=== PATIENT | female | born 1955 | race Caucasian/White ===

== ENCOUNTER 2025-01-14 16:32 | Inpatient (IN) | payer MEDICARE ==
[~2025-01-14] VITALS: Ht 160 cm; Wt 46.4 kg
[~2025-01-14 16:32] MED LIST: OMNICEF300 MG PO
[2025-01-14] MEDS ORDERED: TYLENOL325 M2 PO (17:19)
[2025-01-14] MEDS ORDERED: AMLODIPINE BESY10 MG PO (17:20)
[2025-01-14] MEDS ORDERED: LIPITOR80 MG PO (17:21)
[2025-01-14] MEDS ORDERED: ASPIRIN81 M1 PO (17:21)
[2025-01-14] MEDS ORDERED: DICYCLOMINE HYD10 MG PO (17:23)
[2025-01-14] MEDS ORDERED: COLACE100 MG PO (17:26)
[2025-01-14] MEDS ORDERED: JARDIANCE10 MG PO (17:27)
[2025-01-14] MEDS ORDERED: APRESOLINE25 MG PO (17:29)
[2025-01-14] MEDS ORDERED: LEXAPRO10 MG PO (17:29)
[2025-01-14] MEDS ORDERED: MILK OF MA400 MG/53 PO (17:30)
[2025-01-14] MEDS ORDERED: PANTOPRAZOLE SO40 MG PO (17:31)
[2025-01-14] MEDS ORDERED: REMERON15 M2 PO (17:32)
[2025-01-14] MEDS ORDERED: VALSARTAN160 MG PO (17:32)
[2025-01-14] MEDS ORDERED: hydrOXYzine hydrochloride 50 MG/ML VIAL IM PRN (17:35)
[2025-01-14] MEDS ORDERED: LORazepam 1 MG TAB PO PRN (17:35)
[2025-01-14] MEDS ORDERED: Water, Sterile 10 ML VIAL IM PRN (17:40)
[2025-01-14] MEDS ORDERED: Mirtazapine 15 MG TAB PO SCH (21:00)
[2025-01-14] MEDS ORDERED: DIVALPROEX (DR) 250 MG TAB PO SCH (21:00)
[2025-01-14] MEDS ORDERED: ACETAMINOPHEN 325 MG TAB PO PRN (21:10)
[2025-01-14] MEDS ORDERED: MG-AL HYDROXIDE/SIMETICONE 30 ML UDC PO PRN (21:10)
[2025-01-14 21:11] VITALS: BP 113/64
[2025-01-14] MEDS ORDERED: Menthol/Zinc Oxide 4 GM THIN T PRN (21:30)
[2025-01-14] MEDS ORDERED: DEXTROSE 50% 25 GM/50 ML VIAL IV PRN (22:50)
[2025-01-14] MEDS ORDERED: DOCUSATE SODIUM 100 MG CAP PO PRN (22:50)
[2025-01-15 06:05] LABS: BASO # 0.1 10*3/uL (0.0-0.1); BASO % 0.8 % (0.0-1.0); EOS # 1.1 10*3/uL (0.0-0.4); EOS % 14.7 % (1.0-4.0); MEAN CELL VOLUME 90.4 fl (81.0-99.0); MEAN CORPUSCULAR HGB 28.0 pg (27.0-31.0); MEAN PLATELET VOLUME 9.5 fl (9.6-12.3); MONO # 0.8 10*3/uL (0.1-1.0); MONO % 10.4 % (3.0-9.0); NEUT # 3.4 10*3/uL (2.3-7.9); NEUT % 45.8 % (47.0-73.0); NUCLEATED RED BLOOD CELL 0.0 % (0.0-0.0); NUCLEATED RED BLOOD CELL 0.0 10*3/uL (0.0-0.0); PLATELET COUNT AUTOMATED 336 10*3/uL (130-400); RED CELL DISTRI WIDTH 15.9 % (0-14.5)
[2025-01-15 06:40] LABS: BUN 13 mg/dl (9-23); LDL CHOLESTEROL 45 mg/dL (9-159); SGPT/ALT 13 U/L (5-49)
[2025-01-15 07:10] LABS: VITAMIN D, 25-HYDROXY 27.5 ng/mL (30-100)
[2025-01-15] MEDS ORDERED: INSULIN LISPRO 1 UNIT/0.01 ML SQ SCH (07:30)
[2025-01-15] MEDS ORDERED: Vitamin D 1,000 IU TAB (25 MCG) PO SCH (09:00)
[2025-01-15] MEDS ORDERED: hydrALAZINE hydrochloride 25 MG TAB PO SCH (09:00)
[2025-01-15] MEDS ORDERED: CEFDINIR 300 MG CAP PO SCH (09:00)
[2025-01-15] MEDS ORDERED: Dicyclomine Hydrochloride 10 MG CAP PO SCH (09:00)
[2025-01-15] MEDS ORDERED: ASPIRIN ENTERIC COATED 81 MG TAB PO SCH (09:00)
[2025-01-15 09:11] VITALS: BP 125/70
[2025-01-15] MEDS ORDERED: ATORVASTATIN CALCIUM 80 MG TAB PO SCH (10:00)
[2025-01-15 20:00] VITALS: BP 135/99
[2025-01-16 08:07] VITALS: BP 107/61
[2025-01-16] MEDS ORDERED: Rivastigmine Tartrate 4.6 MG/24 HR PATCH T SCH (09:00)
[2025-01-16 18:42] LABS: BILIRUBIN Negative (Negative); BLOOD Negative (Negative); CLARITY Clear (Clear); COLOR Yellow (Yellow); KETONE Negative (Negative); LEUKO ESTERASE Negative (Negative); NITRITE Negative (Negative); PH 6.5 (4.5-8.0); SPECIFIC GRAVITY 1.015 (1.001-1.030); UROBILINOGEN 0.2 E.U./dl (0.0-1.0)
[2025-01-16 18:54] LABS: BACTERIA TRACE; EPITHELIAL CELLS 21-30; MUCOUS TRACE
[2025-01-16 20:00] VITALS: BP 109/94
[2025-01-17 08:36] VITALS: BP 107/75
[2025-01-17 20:00] VITALS: BP 109/58
[2025-01-17 20:50] VITALS: BP 116/68
[2025-01-18 08:00] VITALS: BP 101/71
[2025-01-18] MEDS ORDERED: Rivastigmine Tartrate 9.5 MG/24 HR PATCH T SCH (09:00)
[2025-01-18 20:00] VITALS: BP 112/80
[2025-01-19 07:50] VITALS: BP 120/64
[2025-01-19 19:16] VITALS: BP 116/65
[2025-01-20 08:41] VITALS: BP 118/74
[2025-01-20] MEDS ORDERED: RIVASTIGMINE 13.3 MG/24 HR TDM T SCH (09:00)
[2025-01-20 20:00] VITALS: BP 127/71
[2025-01-20] MEDS ORDERED: Memantine Hydrochloride 5 MG TAB PO SCH (21:00)
[2025-01-21 06:41] LABS: BUN 16 mg/dl (9-23)
[2025-01-21 06:47] LABS: BASO # 0.1 10*3/uL (0.0-0.1); BASO % 0.8 % (0.0-1.0); EOS # 0.8 10*3/uL (0.0-0.4); EOS % 12.4 % (1.0-4.0); MEAN CELL VOLUME 89.6 fl (81.0-99.0); MEAN CORPUSCULAR HGB 28.3 pg (27.0-31.0); MEAN PLATELET VOLUME 9.6 fl (9.6-12.3); MONO # 0.6 10*3/uL (0.1-1.0); MONO % 9.6 % (3.0-9.0); NEUT # 3.0 10*3/uL (2.3-7.9); NEUT % 48.1 % (47.0-73.0); NUCLEATED RED BLOOD CELL 0.0 % (0.0-0.0); NUCLEATED RED BLOOD CELL 0.0 10*3/uL (0.0-0.0); PLATELET COUNT AUTOMATED 326 10*3/uL (130-400); RED CELL DISTRI WIDTH 15.9 % (0-14.5)
[2025-01-21 07:59] VITALS: BP 126/78
[2025-01-21 20:00] VITALS: BP 120/70
[2025-01-22 08:00] VITALS: BP 147/80
[2025-01-22 10:03] LABS: BASO # 0.1 10*3/uL (0.0-0.1); BASO % 0.8 % (0.0-1.0); EOS # 0.5 10*3/uL (0.0-0.4); EOS % 6.9 % (1.0-4.0); MEAN CORPUSCULAR HGB 28.6 pg (27.0-31.0); MEAN PLATELET VOLUME 9.3 fl (9.6-12.3); MONO # 0.5 10*3/uL (0.1-1.0); MONO % 7.3 % (3.0-9.0); NEUT # 3.8 10*3/uL (2.3-7.9); NEUT % 57.8 % (47.0-73.0); NUCLEATED RED BLOOD CELL 0.0 % (0.0-0.0); NUCLEATED RED BLOOD CELL 0.0 10*3/uL (0.0-0.0); PLATELET COUNT AUTOMATED 357 10*3/uL (130-400); RED CELL DISTRI WIDTH 15.9 % (0-14.5)
[2025-01-22 10:04] LABS: MEAN CELL VOLUME 91.0 fl (81.0-99.0)
[2025-01-22 10:12] LABS: BUN 11 mg/dl (9-23)
[2025-01-22] MEDS ORDERED: BISACODYL 10 MG SUPP R ONE (10:25)
[2025-01-22 12:25] LABS: BILIRUBIN Negative (Negative); BLOOD Negative (Negative); CLARITY Clear (Clear); COLOR Yellow (Yellow); KETONE Negative (Negative); LEUKO ESTERASE Negative (Negative); NITRITE Negative (Negative); PH 7.0 (4.5-8.0); SPECIFIC GRAVITY 1.015 (1.001-1.030); UROBILINOGEN 0.2 E.U./dl (0.0-1.0)
[2025-01-22 20:09] VITALS: BP 98/48
[2025-01-22] MEDS ORDERED: Memantine Hydrochloride 5 MG TAB PO SCH (21:00)
[2025-01-23 08:00] VITALS: BP 129/78
[2025-01-23] MEDS ORDERED: SODIUM CHLORIDE 0.9% 1,000 ML IV ONE (12:25)
[2025-01-23 20:00] VITALS: BP 123/66
[2025-01-24 06:51] LABS: BASO # 0.0 10*3/uL (0.0-0.1); BASO % 0.8 % (0.0-1.0); EOS # 0.5 10*3/uL (0.0-0.4); EOS % 9.1 % (1.0-4.0); MEAN CELL VOLUME 89.5 fl (81.0-99.0); MEAN CORPUSCULAR HGB 28.3 pg (27.0-31.0); MEAN PLATELET VOLUME 8.8 fl (9.6-12.3); MONO # 0.5 10*3/uL (0.1-1.0); MONO % 9.1 % (3.0-9.0); NEUT # 2.1 10*3/uL (2.3-7.9); NEUT % 40.0 % (47.0-73.0); NUCLEATED RED BLOOD CELL 0.0 % (0.0-0.0); NUCLEATED RED BLOOD CELL 0.0 10*3/uL (0.0-0.0); PLATELET COUNT AUTOMATED 287 10*3/uL (130-400); RED CELL DISTRI WIDTH 15.7 % (0-14.5)
[2025-01-24 07:26] LABS: BUN 16 mg/dl (9-23)
[2025-01-24 08:00] VITALS: BP 123/69
[2025-01-24] MEDS ORDERED: Vitamin D (1,000 UNI PO (08:26)
[2025-01-24] MEDS ORDERED: MIRTAZAPINE15 M2 PO (11:22)
[2025-01-24] MEDS ORDERED: MEMANTINE HCL10 MG PO (11:22)
[2025-01-24] MEDS ORDERED: DIVALPROEX SOD250 MG PO (11:22)
[2025-01-24] MEDS ORDERED: RIVASTIGMINE1 EAC2 T (11:22)
== END 2025-01-24 13:10 | DRG 881 ==
LOC: 3N
PROVIDERS: Internal Medicine; Registered Nurse; ADMIT Psychiatry & Neurology Psychiatry; ATTEND Psychiatry & Neurology Psychiatry
PROC: GZHZZZZ Group Psychotherapy (ICD-10-PCS; principal; 2025-01-15)
PROC: 0HBRXZZ Excision of Toe Nail, External Approach (ICD-10-PCS; 2025-01-18)
PROC: 0HBRXZZ Excision of Toe Nail, External Approach (ICD-10-PCS; 2025-01-18)
PROC: 0HBRXZZ Excision of Toe Nail, External Approach (ICD-10-PCS; 2025-01-18)
PROC: 0HBRXZZ Excision of Toe Nail, External Approach (ICD-10-PCS; 2025-01-18)
PROC: 0HBRXZZ Excision of Toe Nail, External Approach (ICD-10-PCS; 2025-01-18)
PROC: 0HBRXZZ Excision of Toe Nail, External Approach (ICD-10-PCS; 2025-01-18)
PROC: 0HBRXZZ Excision of Toe Nail, External Approach (ICD-10-PCS; 2025-01-18)
PROC: 0HBRXZZ Excision of Toe Nail, External Approach (ICD-10-PCS; 2025-01-18)
PROC: 0HBRXZZ Excision of Toe Nail, External Approach (ICD-10-PCS; 2025-01-18)
PROC: 0HBRXZZ Excision of Toe Nail, External Approach (ICD-10-PCS; 2025-01-18)
DX: F32.9 Major depressive disorder, single episode, unspecified (principal); E43 Unspecified severe protein-calorie malnutrition; E11.65 Type 2 diabetes mellitus with hyperglycemia; N39.0 Urinary tract infection, site not specified; K51.919 Ulcerative colitis, unspecified with unspecified complications; Z68.1 Body mass index [BMI] 19.9 or less, adult; F63.81 Intermittent explosive disorder; D64.9 Anemia, unspecified; F01.50 Vascular dementia, unspecified severity, without behavioral disturbance, psychotic disturbance, mood disturbance, and anxiety; I10 Essential (primary) hypertension; I71.9 Aortic aneurysm of unspecified site, without rupture; B35.1 Tinea unguium; E78.5 Hyperlipidemia, unspecified; Z66 Do not resuscitate; E55.9 Vitamin D deficiency, unspecified; E87.8 Other disorders of electrolyte and fluid balance, not elsewhere classified; Z86.73 Personal history of transient ischemic attack (TIA), and cerebral infarction without residual deficits; Z87.891 Personal history of nicotine dependence; Z90.49 Acquired absence of other specified parts of digestive tract; Z88.1 Allergy status to other antibiotic agents; Z79.899 Other long term (current) drug therapy